=== PATIENT | female | born 1955 | race Caucasian/White ===

== ENCOUNTER → 2017-01-31 | Outpatient (CLI) | payer BC ==
[~2017-01-31] MED LIST: LEVOTHYROXIN0.075 M1 PO; VICODIN 5/500 T1 TAB
--- NOTE | 2017-01-31 20:52 | RADIOLOGY REPORT PS360 ---
CHEST(2 VIEWS-NOT PORTABLE) COMPARISON: Portable upright chest 12/24/2011 HISTORY: Cough, suspect pneumonia TECHNIQUE: PA and lateral chest FINDINGS: The lung lang are well expanded. There is an ill-defined pneumonic infiltrate in right middle lobe and there likely is involvement of the right lower lobe as well. The right upper lung field left lung field are clear. There is prominent dextroscoliotic curvature of the thoracic spine with compensatory levoscoliotic curvature of the lumbar spine with a rotatory component. IMPRESSION: Right middle lobe and right lower lobe bronchopneumonia
== END ==
LOC: RAD 11:38
DX: J18.9 Pneumonia, unspecified organism (principal)

== ENCOUNTER → 2017-08-10 | Outpatient (CLI) | payer BC ==
[2017-08-10 09:28] LABS: BUN 13 mg/dL (7-18)
[2017-08-10 09:32] LABS: GFR (ESTIMATED) 101 ML/MIN (59-)
== END ==
LOC: LAB 07:06
PROVIDERS: Family Medicine
DX: E78.5 Hyperlipidemia, unspecified (principal); E03.9 Hypothyroidism, unspecified